=== PATIENT | male | born 1980 | race Caucasian/White ===

== ENCOUNTER 2019-11-09 22:09 | Emergency (ER) | payer OTHER ==
[2019-11-09] MEDS ORDERED: cloNIDine HCL 0.1 MG TABLET PO ONE (22:22)
--- NOTE | 2019-11-09 22:53 | ED Physician Documentation ---
General Adult - HISTORIAN Historian: patient - HPI Stated Complaint: bleeding hemorrhoid Chief Complaint: General Adult Additional Information: Patient presents to ED with a 1 hour history of bleeding hemorrhoid. Patient states he was having a bowel movement when the bleeding started. He reports diarrhea intermittently over the past 2 weeks, resolved over the past 2-3 days. Tonight he had a solid bowel movement and the bleeding began. He states he has a habit of sitting on the toilet for about a hour daily reading. He denies constipation during this hour, he just enjoys the seclusion. Upon arrival he did have elevated blood pressure. Patient also reports a month of cough and sinus congestion. He saw his PCP about 3 weeks ago and was told it was a virus. He states he is still having cough, nasal congestion and sinus pressure. Onset: hours (1) Timing: better Severity: moderate - ROS CONST: denies: fever - PAST HX Past History: hypertension, other (hemorrhoids) Other History: none, other ([facility]) Surgeries/Procedures: none Allergies/Adverse Reactions: Allergies Allergy/AdvReac Type Severity Reaction Status Date / Time cefaclor [From Ceclor] Allergy Verified 11/09/19 22:22 Penicillins Allergy Verified 11/09/19 22:22 Sulfa (Sulfonamide Allergy Verified 11/09/19 22:22 Antibiotics) Home Medications: Ambulatory Orders Medication Instructions Recorded CiproFLOXacin HCL [Cipro] 500 mg PO BID #14 tablet 11/09/19 Hydrocortisone [Proctosol-Hc] 1 applic TP Q8 #28 [email or web address] 11/09/19 Triamterene/Hctz [Dyazide 37.5/25] 1 tab PO DAILY 11/09/19 - SOCIAL HX Smoking History: non-smoker Alcohol Use: none Drug Use: none - FAMILY HX Family History: No - VITAL SIGNS Vital Signs: Vital Signs Temp Pulse Resp BP Pulse Ox 98.7 F 95 H 20 187/88 98 11/09/19 22:23 11/09/19 22:23 11/09/19 22:23 11/09/19 22:23 11/09/19 22:23 - REVIEWED ASSESSMENTS Nursing Assessment Reviewed: Yes Vitals Reviewed: Yes ED Results Lab/Radiology - Orders Orders: ED Orders Category Date Time Status CBC/PLATELET/DIFF Routine Lab 11/09/19 Ordered CMP [CMP] Routine Lab 11/09/19 Ordered cloNIDine HCL [Catapress] Med 11/09/19 22:22 Discontinued 0.1 mg PO NOW ONE General Adult Physical Exam - PHYSICAL EXAM GENERAL APPEARANCE: no distress EENT: BILLY NECK: supple RESPIRATORY: no resp distress, breath sounds normal CVS: reg rate & rhythm, heart sounds normal ABDOMEN: soft, no distension, non-tender RECTAL: hemorrhoids (external, no active bleeding) BACK: normal inspection, no CVA tenderness SKIN: warm/dry EXTREMITIES: non-tender NEURO: oriented X3, mood/affect nml Discharge Clincal Impression: External hemorrhoid, bleeding, Upper respiratory infection, acute Prescriptions: CiproFLOXacin HCL [Cipro] 500 mg PO BID #14 tablet Hydrocortisone [Proctosol-Hc] 1 applic TP Q8 #28 [email or web address] Referrals: Hayley Layton MD [Primary Care Provider] - 2 Days Additional Instructions: 1. Take antibiotic until gone 2. Apply proctofoam every 8 hours, especially after bowel movements 3. Hemorrhoid ice packs can be very beneficial. You can buy them from [employer]. 4. Avoid prolonged periods of time sitting on toilet. 5. Follow up with PCP within 1 week. Discuss referral to surgery/GI for possible hemorrhoid banding 6. Return to ER for new or worsening symptoms. Condition: Stable Disposition: 01 HOME, SELF-CARE Decision to Admit: NO Date of Decison to Admit: 11/09/19 Decision Time: 23:44
[2019-11-09 23:15] LABS: BASOPHILS % 0.7 % (0.0-1.5); NEUTROPHILS # 6.9 # k/uL (1.4-7.7)
[2019-11-09 23:21] LABS: eGFR (Non-African) > 60
[2019-11-09] MEDS ORDERED: PANTOPRAZOLE SODIUM 40 MG TABLET.DR ONE (23:37)
[2019-11-09] MEDS ORDERED: MAGNESIUM HYDROXIDE 2,400 MG/30 ML UDC PO ONE (23:37)
[2019-11-09] MEDS ORDERED: MAG HYDROX/ALUMINUM HYD/SIMETH 30 ML UDC PO ONE (23:38)
[2019-11-09] MEDS ORDERED: PANTOPRAZOLE SODIUM 40 MG TABLET.DR PO ONE (23:38)
[2019-11-10 00:01] VITALS: BP 141/93
== END 2019-11-09 22:54 | disposition home or self-care (01) ==
LOC: ED 22:09
DX: K64.4 Residual hemorrhoidal skin tags (principal); J06.9 Acute upper respiratory infection, unspecified
CPT/HCPCS: 80053; 85025; 99283; 99284